=== PATIENT | female | born 1960 | race Caucasian/White ===

== ENCOUNTER 2016-12-12 11:29 | Emergency (ER) | payer OTHER ==
[~2016-12-12] VITALS: Ht 154.9 cm; Wt 83.0 kg
[2016-12-12 11:39] VITALS: Ht 154.9 cm; Wt 83.0 kg
[2016-12-12] MEDS ORDERED: KETOROLAC 30 MG INJ IM STA (12:27)
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
[2016-12-12] MEDS ORDERED: NAPR-260 PO (14:34)
== END 2016-12-12 15:27 | disposition home or self-care (01) ==
LOC: FTE 11:29
DX: M25.562 Pain in left knee (principal)
CPT/HCPCS: 73562; J1885